=== PATIENT | male | born 1940 | race Caucasian/White ===

== ENCOUNTER → 2016-05-10 | Outpatient (CLI) | payer OTHER, BC ==
[~2016-05-10] MED LIST: ACTOS15 MG PO; ADULT LOW DOSE81 MG PO; ALLOPURINOL 30300 M1 PO; ALLOPURINOL 30300 M2 PO; ALLOPURINOL 30300 M3 PO; AMARYL4 MG PO; ASPIRIN325 PO; AVELOX 400 MG400 MG OR; CADUET 5 MG-401 EACH PO; CARVEDILOL 37.5 MG PO; CEFDINIR PO; COLACE100 MG PO; CORGARD40 M1 PO; CORGARD40 MG PO; DIOVAN HCT 1601 EACH PO; DIOVAN HCT 3201 EAC1 PO; DOXEPIN 10 MG C10 MG PO; DOXYCYCLINE 10100 MG PO; GLUCOPHAGE850 MG PO; HYDROXYZINE HCL10 M1 PO; IMDUR 30 MG TAB30 M1 PO; LASIX 40 MG TAB40 M2 PO; LIPITOR40 MG PO; METFORMIN; MVI PO; MYRBETRIQ50 MG PO; OMEGA-31000 MG PO; PENICILLIN V P500 MG PO; PLAVIX 75 MG TA75 MG PO; PRADAXA150 MG PO; PREDNISONE 5 MG5 M1 OR; PRILOSEC 20 MG20 MG PO; PRIMIDONE50 MG PO; SERTRALINE HCL50 MG PO; SUPER OMEGA-31000 MG PO; VITAMIN B-12500 MCG PO; VITAMIN D2000 UNIT PO; XANAX 0.25 MG0.25 MG PO; [UNRECOGNIZED DRUG - OTHER]; [UNRECOGNIZED DRUG - OTHER] PO
== END ==
LOC: RAD 15:25
DX: L97.529 Non-pressure chronic ulcer of other part of left foot with unspecified severity (principal)

== ENCOUNTER → 2016-05-24 | Outpatient (CLI) | payer OTHER, BC | LOC: HYPER 07:48 | DX: I70.245 Atherosclerosis of native arteries of left leg with ulceration of other part of foot (principal); L97.521 Non-pressure chronic ulcer of other part of left foot limited to breakdown of skin; E11.621 Type 2 diabetes mellitus with foot ulcer; E11.51 Type 2 diabetes mellitus with diabetic peripheral angiopathy without gangrene; Z79.84 Long term (current) use of oral hypoglycemic drugs; Z87.891 Personal history of nicotine dependence; Z72.89 Other problems related to lifestyle ==

== ENCOUNTER → 2016-07-15 | Outpatient (CLI) | payer OTHER, BC | LOC: HYPER 07-14 15:47 | DX: E11.621 Type 2 diabetes mellitus with foot ulcer (principal); L97.511 Non-pressure chronic ulcer of other part of right foot limited to breakdown of skin; L97.521 Non-pressure chronic ulcer of other part of left foot limited to breakdown of skin; L97.411 Non-pressure chronic ulcer of right heel and midfoot limited to breakdown of skin; E11.622 Type 2 diabetes mellitus with other skin ulcer; L97.821 Non-pressure chronic ulcer of other part of left lower leg limited to breakdown of skin; L97.811 Non-pressure chronic ulcer of other part of right lower leg limited to breakdown of skin; E11.51 Type 2 diabetes mellitus with diabetic peripheral angiopathy without gangrene; Z79.84 Long term (current) use of oral hypoglycemic drugs; Z87.891 Personal history of nicotine dependence ==

== ENCOUNTER → 2016-08-06 | Outpatient (CLI) | payer OTHER, BC | LOC: HYPER 07:09 | DX: E11.621 Type 2 diabetes mellitus with foot ulcer (principal); L97.512 Non-pressure chronic ulcer of other part of right foot with fat layer exposed; I70.245 Atherosclerosis of native arteries of left leg with ulceration of other part of foot; L97.522 Non-pressure chronic ulcer of other part of left foot with fat layer exposed; E11.51 Type 2 diabetes mellitus with diabetic peripheral angiopathy without gangrene; Z79.84 Long term (current) use of oral hypoglycemic drugs; Z87.891 Personal history of nicotine dependence; Z72.89 Other problems related to lifestyle ==

== ENCOUNTER → 2016-08-27 | Outpatient (CLI) | payer OTHER, BC | LOC: HYPER 07:12 | DX: E11.621 Type 2 diabetes mellitus with foot ulcer (principal); L97.521 Non-pressure chronic ulcer of other part of left foot limited to breakdown of skin; L97.511 Non-pressure chronic ulcer of other part of right foot limited to breakdown of skin; E11.51 Type 2 diabetes mellitus with diabetic peripheral angiopathy without gangrene; F15.90 Other stimulant use, unspecified, uncomplicated; Z79.84 Long term (current) use of oral hypoglycemic drugs; Z95.1 Presence of aortocoronary bypass graft; Z87.891 Personal history of nicotine dependence; Z72.89 Other problems related to lifestyle; Z72.0 Tobacco use ==

== ENCOUNTER → 2016-09-10 | Outpatient (CLI) | payer OTHER, BC | LOC: HYPER 06:56 | DX: E11.621 Type 2 diabetes mellitus with foot ulcer (principal); L97.511 Non-pressure chronic ulcer of other part of right foot limited to breakdown of skin; L97.521 Non-pressure chronic ulcer of other part of left foot limited to breakdown of skin; E11.51 Type 2 diabetes mellitus with diabetic peripheral angiopathy without gangrene; Z79.84 Long term (current) use of oral hypoglycemic drugs; Z87.891 Personal history of nicotine dependence; Z72.89 Other problems related to lifestyle; Z72.0 Tobacco use; Z95.1 Presence of aortocoronary bypass graft ==

== ENCOUNTER → 2016-09-30 | Outpatient (CLI) | payer OTHER, BC | LOC: HYPER 07:03 | DX: E11.621 Type 2 diabetes mellitus with foot ulcer (principal); L97.512 Non-pressure chronic ulcer of other part of right foot with fat layer exposed; L97.522 Non-pressure chronic ulcer of other part of left foot with fat layer exposed; I70.245 Atherosclerosis of native arteries of left leg with ulceration of other part of foot; E11.51 Type 2 diabetes mellitus with diabetic peripheral angiopathy without gangrene; Z79.84 Long term (current) use of oral hypoglycemic drugs; Z87.891 Personal history of nicotine dependence; Z72.89 Other problems related to lifestyle ==

== ENCOUNTER → 2016-10-16 | Outpatient (CLI) | payer OTHER, BC | LOC: HYPER 07:02 | DX: I70.245 Atherosclerosis of native arteries of left leg with ulceration of other part of foot (principal); E11.622 Type 2 diabetes mellitus with other skin ulcer; E11.51 Type 2 diabetes mellitus with diabetic peripheral angiopathy without gangrene; L97.512 Non-pressure chronic ulcer of other part of right foot with fat layer exposed; L97.522 Non-pressure chronic ulcer of other part of left foot with fat layer exposed; Z79.84 Long term (current) use of oral hypoglycemic drugs; Z95.1 Presence of aortocoronary bypass graft; Z87.891 Personal history of nicotine dependence; Z72.89 Other problems related to lifestyle ==

== ENCOUNTER → 2016-11-01 | Outpatient (CLI) | payer OTHER, BC | LOC: HYPER 07:53 | DX: E11.621 Type 2 diabetes mellitus with foot ulcer (principal); L97.512 Non-pressure chronic ulcer of other part of right foot with fat layer exposed; I70.245 Atherosclerosis of native arteries of left leg with ulceration of other part of foot; L97.522 Non-pressure chronic ulcer of other part of left foot with fat layer exposed; E11.51 Type 2 diabetes mellitus with diabetic peripheral angiopathy without gangrene; F41.9 Anxiety disorder, unspecified; Z79.84 Long term (current) use of oral hypoglycemic drugs; Z87.891 Personal history of nicotine dependence; Z72.89 Other problems related to lifestyle; Z95.1 Presence of aortocoronary bypass graft ==

== ENCOUNTER → 2016-11-18 | Outpatient (CLI) | payer OTHER, BC | LOC: HYPER 07:06 | DX: E11.621 Type 2 diabetes mellitus with foot ulcer (principal); L97.522 Non-pressure chronic ulcer of other part of left foot with fat layer exposed; L97.512 Non-pressure chronic ulcer of other part of right foot with fat layer exposed; I70.245 Atherosclerosis of native arteries of left leg with ulceration of other part of foot; E11.51 Type 2 diabetes mellitus with diabetic peripheral angiopathy without gangrene; Z79.84 Long term (current) use of oral hypoglycemic drugs; Z87.891 Personal history of nicotine dependence; Z72.89 Other problems related to lifestyle; Z95.1 Presence of aortocoronary bypass graft; F41.9 Anxiety disorder, unspecified ==

== ENCOUNTER → 2016-12-04 | Outpatient (CLI) | payer OTHER, BC | LOC: HYPER 07:02 | DX: E11.621 Type 2 diabetes mellitus with foot ulcer (principal); L97.522 Non-pressure chronic ulcer of other part of left foot with fat layer exposed; L97.512 Non-pressure chronic ulcer of other part of right foot with fat layer exposed; Z79.84 Long term (current) use of oral hypoglycemic drugs; E11.51 Type 2 diabetes mellitus with diabetic peripheral angiopathy without gangrene; F41.9 Anxiety disorder, unspecified; Z95.1 Presence of aortocoronary bypass graft; Z87.891 Personal history of nicotine dependence; Z72.89 Other problems related to lifestyle ==

== ENCOUNTER → 2016-12-27 | Outpatient (CLI) | payer OTHER, BC | LOC: HYPER 07:59 | DX: E11.621 Type 2 diabetes mellitus with foot ulcer (principal); L97.522 Non-pressure chronic ulcer of other part of left foot with fat layer exposed; L97.512 Non-pressure chronic ulcer of other part of right foot with fat layer exposed; Z79.84 Long term (current) use of oral hypoglycemic drugs; E11.51 Type 2 diabetes mellitus with diabetic peripheral angiopathy without gangrene; Z95.1 Presence of aortocoronary bypass graft; Z87.891 Personal history of nicotine dependence; Z72.89 Other problems related to lifestyle ==

== ENCOUNTER → 2017-01-14 | Outpatient (CLI) | payer OTHER, BC | LOC: HYPER 07:02 | DX: I70.245 Atherosclerosis of native arteries of left leg with ulceration of other part of foot (principal); L97.522 Non-pressure chronic ulcer of other part of left foot with fat layer exposed; I70.235 Atherosclerosis of native arteries of right leg with ulceration of other part of foot; L97.512 Non-pressure chronic ulcer of other part of right foot with fat layer exposed; E11.621 Type 2 diabetes mellitus with foot ulcer; Z79.84 Long term (current) use of oral hypoglycemic drugs; Z95.1 Presence of aortocoronary bypass graft; Z87.891 Personal history of nicotine dependence; Z72.89 Other problems related to lifestyle ==

== ENCOUNTER → 2017-01-31 | Outpatient (CLI) | payer OTHER, BC | LOC: HYPER 08:03 | DX: E11.621 Type 2 diabetes mellitus with foot ulcer (principal); L97.512 Non-pressure chronic ulcer of other part of right foot with fat layer exposed; L97.522 Non-pressure chronic ulcer of other part of left foot with fat layer exposed; E11.51 Type 2 diabetes mellitus with diabetic peripheral angiopathy without gangrene; Z79.84 Long term (current) use of oral hypoglycemic drugs; Z95.1 Presence of aortocoronary bypass graft; Z87.891 Personal history of nicotine dependence ==

== ENCOUNTER → 2017-02-14 | Outpatient (CLI) | payer OTHER, BC | LOC: HYPER 07:48 | DX: E11.621 Type 2 diabetes mellitus with foot ulcer (principal); L97.512 Non-pressure chronic ulcer of other part of right foot with fat layer exposed; L97.522 Non-pressure chronic ulcer of other part of left foot with fat layer exposed; E11.51 Type 2 diabetes mellitus with diabetic peripheral angiopathy without gangrene; Z79.84 Long term (current) use of oral hypoglycemic drugs; Z95.1 Presence of aortocoronary bypass graft; Z87.891 Personal history of nicotine dependence; Z72.89 Other problems related to lifestyle ==

== ENCOUNTER → 2017-03-25 | Outpatient (CLI) | payer OTHER, BC | LOC: HYPER 07:05 | DX: E11.621 Type 2 diabetes mellitus with foot ulcer (principal); L97.522 Non-pressure chronic ulcer of other part of left foot with fat layer exposed; L97.512 Non-pressure chronic ulcer of other part of right foot with fat layer exposed; I70.245 Atherosclerosis of native arteries of left leg with ulceration of other part of foot; E11.51 Type 2 diabetes mellitus with diabetic peripheral angiopathy without gangrene; Z79.84 Long term (current) use of oral hypoglycemic drugs; Z95.1 Presence of aortocoronary bypass graft; Z87.891 Personal history of nicotine dependence; Z72.89 Other problems related to lifestyle ==

== ENCOUNTER → 2017-04-15 | Outpatient (CLI) | payer OTHER, BC ==
[~2017-04-15] MED LIST changes: +CENTRUM SILVER1 EAC2 PO; +COREG6.25 MG PO; +FISH OIL 1,001000 M2 PO; +INVOKANA100 MG PO; +JANUVIA 50 MG T50 MG PO; +NORCO 5-325 TA1 EACH PO; +PRADAXA75 MG PO; +PROAIR HFA8.5 GM INH; +VITAMINC500 PO
== END ==
LOC: HYPER 06:48
DX: E11.621 Type 2 diabetes mellitus with foot ulcer (principal); L97.521 Non-pressure chronic ulcer of other part of left foot limited to breakdown of skin; L97.512 Non-pressure chronic ulcer of other part of right foot with fat layer exposed; S80.811D Abrasion, right lower leg, subsequent encounter; E11.51 Type 2 diabetes mellitus with diabetic peripheral angiopathy without gangrene; I73.9 Peripheral vascular disease, unspecified; Z87.891 Personal history of nicotine dependence; Z72.89 Other problems related to lifestyle; Z95.1 Presence of aortocoronary bypass graft; Z79.84 Long term (current) use of oral hypoglycemic drugs

== ENCOUNTER → 2017-05-06 | Outpatient (CLI) | payer OTHER, BC | LOC: HYPER 06:41 | DX: S90.424D Blister (nonthermal), right lesser toe(s), subsequent encounter (principal); E11.621 Type 2 diabetes mellitus with foot ulcer; I70.245 Atherosclerosis of native arteries of left leg with ulceration of other part of foot; L97.522 Non-pressure chronic ulcer of other part of left foot with fat layer exposed; L97.512 Non-pressure chronic ulcer of other part of right foot with fat layer exposed; E11.622 Type 2 diabetes mellitus with other skin ulcer; L97.811 Non-pressure chronic ulcer of other part of right lower leg limited to breakdown of skin; L89.612 Pressure ulcer of right heel, stage 2; E11.51 Type 2 diabetes mellitus with diabetic peripheral angiopathy without gangrene; Z95.1 Presence of aortocoronary bypass graft; Z87.891 Personal history of nicotine dependence; Z72.89 Other problems related to lifestyle; X58.XXXD Exposure to other specified factors, subsequent encounter ==

== ENCOUNTER → 2017-05-20 | Outpatient (CLI) | payer OTHER, BC | LOC: HYPER 06:43 | DX: E11.621 Type 2 diabetes mellitus with foot ulcer (principal); L97.411 Non-pressure chronic ulcer of right heel and midfoot limited to breakdown of skin; I70.245 Atherosclerosis of native arteries of left leg with ulceration of other part of foot; L97.521 Non-pressure chronic ulcer of other part of left foot limited to breakdown of skin; E11.51 Type 2 diabetes mellitus with diabetic peripheral angiopathy without gangrene; Z79.84 Long term (current) use of oral hypoglycemic drugs; Z95.1 Presence of aortocoronary bypass graft; Z87.891 Personal history of nicotine dependence; Z72.89 Other problems related to lifestyle ==

== ENCOUNTER 2017-06-04 05:17 | Inpatient (IN) | payer OTHER, BC ==
[2017-06-02 09:24] LABS: URINE BILIRUBIN NEGATIVE (Negative); URINE BLOOD NEGATIVE (Negative); URINE CLARITY CLEAR; URINE COLOR YELLOW; URINE GLUCOSE-RANDOM* 2+ (Negative); URINE KETONES NEGATIVE (Negative); URINE LEUKOCYTES NEGATIVE (Negative); URINE NITRITE NEGATIVE (Negative); URINE PROTEIN (DIPSTICK) NEGATIVE (Negative); URINE SPECIFIC GRAVITY 1.015 (1.005-1.035); URINE UROBILINOGEN 0.2 E.U./dl (0.2-1.0)
[2017-06-02 09:29] LABS: HEMATOCRIT 24.5 % (42.0-52.0); MCHC 32.8 g/dL (28.0-37.0); MCV 106.7 fL (80.0-100.0); RBC 2.3 mil/uL (4.50-6.00); WBC 10.7 thou/uL (4.0-11.0)
[2017-06-02 09:42] LABS: APTT 30.1 Seconds (24.5-32.8); INR 1.1
[2017-06-02 09:50] LABS: ALBUMIN 2.8 g/dL (3.4-5.0); CALCIUM 9.3 mg/dL (8.5-10.1); POTASSIUM 3.6 mmol/L (3.5-5.1); TOTAL BILIRUBIN 0.2 mg/dL (<0.1-1.0)
[~2017-06-04] VITALS: Ht 175.3 cm; Wt 97.1 kg
--- NOTE | ~2017-06-04 | HC ---
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 HISTORY OF PRESENT ILLNESS: The patient is a very pleasant 77-year-old gentleman well known to Dr. Aris Hanson at [facility]. This gentleman has history of diabetes mellitus type 2 and peripheral arterial disease of the lower extremities. He has seen Dr. Hanson in the clinic since April 2016. 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 More recently, he developed an ulceration of the right lateral heel, which was worsening and now progressing. The patient yesterday was taken to the operating room by Rodolfo Boone MD and underwent right common femoral artery endarterectomy with bovine pericardial patch angioplasty. At the end of surgery, the patient had an excellent Doppler signal in the superficial femoral artery and pulses in both feet. Wound care is consulted for inpatient care of the patient's wound. PAST MEDICAL HISTORY: 1. Diabetes mellitus type 2. 2. Peripheral arterial disease with arterial insufficiency of the lower extremities. SOCIAL HISTORY: The patient is a nonsmoker. He lives with his who is present in the room at the time of today's visit. MEDICATIONS: Chronic medications have included, see chart. PAST SURGICAL HISTORY: The patient has a history of previous arterial stent to the lower extremities. PHYSICAL EXAMINATION: GENERAL: Shows a well-appearing elderly gentleman, alert, conversant, appears slightly pale. HEENT: Mucous membranes are moist. NECK: Supple. LUNGS: Respirations are unlabored. ABDOMEN: Soft. [address] [address] CONSULTATION Name: GIANNA DELGADO Room #: 208-P [facility] IN .R.#: [id number] Admission: 06/04/17 Attend Phys: Rodolfo Boone MD Discharge: 06/06/17 Date of : 36 Report #: [id number] EXTREMITIES: Examination of the lower extremities shows easily palpable dorsalis pedis pulse in the right and left dorsalis pedis. Examination of the right foot shows a small ulceration of the medial right great toe with adherent exudate measuring 1 x 0.2 x 0.1 cm deep. On the right lateral heel, there is a 2 x 2 cm ulcer with adherent grayish black surface eschar superficially necrotic. Examination of the left foot shows small arterial ulcer of the left lateral great toe measuring 0.7 x 0.2 x 0.1 cm with adherent white exudate. IMPRESSION: 1. Peripheral arterial insufficiency of the lower extremities arterial ulcers of the left and right great toe and the right heel. 2. Diabetes mellitus type 2 with foot ulcerations. 3. Postoperative anemia. PLAN: Reperfusion to the right leg has been established by surgical angioplasty. Dorsalis pedis pulse is excellent. We will observe for healing. Topical care of the wound with Medihoney and Mepilex AG border. Medihoney to the small ulcers of the right and left great toe arterial ulcers with foam. Wound care team will observe for healing and observe slight redness of the left great toe. <ELECTRONICALLY SIGNED> By: Branden Resendez MD 06/07/17 1117 [id number] Branden Resendez MD /nt
--- NOTE | ~2017-06-04 | S ---
[facility] [place] [place] [place] [address] SURGICAL PATH RPT PROCEDURE Name: JAMES DELGADO Room #: 208-P ADM IN M.R.#: [id number] Admission: 06/04/17 Date of : 36 Discharge: Report #: [id number] Path Case #: [id number] PATHOLOGY REPORT COLLECTION DATE: 06/04/2017 RECEIVED DATE: 06/04/2017 SUBMITTING PHYS: Dr. Rodolfo Boone OTHER PHYS: Dr Sue Chappell SPECIMEN(S) RECEIVED: A.Femoral plaque * * * * * * * * * * * * FINAL DIAGNOSIS: Femoral plaque: - Marked calcific sclerosis present, history of peripheral vascular disease and atherosclerosis. (IUV:adalid; 06/06/2017) PATHOLOGIST: Xin Coburn M.D. REPORT ELECTRONICALLY SIGNED BY: Xin Coburn M.D. DATE/TIME: 06/06/2017 13:05 * * * * * * * * * * * * GROSS PATHOLOGY: The specimen is received in formalin, labeled "James Delgado femoral plaque". Received are multiple fragments of pale yellow-brizuela to dark brown, rubbery to partially calcified tissue measuring 3.5 x 3.2 x 1.3 cm in aggregate dimensions. The specimen is submitted representatively in cassette A1, following light decalcification. (DAC; 06/05/2017) CLINICAL HISTORY: Atherosclerotic, PVD with ulceration INITIAL CPT CODE(S): A; 06298, 69466 Professional services performed by [facility] at [facility] [address], [place] [address] Technical services performed by [facility] at [address] [place] [id number]. [facility] [address] [place] [address] SURGICAL PATH RPT PROCEDURE Name: JAMES DELGADO Room #: 208-P ADM IN M.R.#: [id number] Admission: 06/04/17 Date of : 36 Discharge: Report #: [id number] Path Case #: [id number] [facility] [address] PHONE: [phone] DIRECTOR: Mikel Wilson M.D. * * * END OF REPORT * * *
--- NOTE | ~2017-06-04 | O ---
[facility] [place] [address] OPERATIVE REPORT Name: SANDYGIANNA Melvin Room #: 208-P [facility]..#: [id number] Admission: 06/04/17 Attend Phys: Rodolfo Boone MD Discharge: 06/06/17 Date of : 36 Report #: [id number] THIS REPORT FOR: //name// CC: Sue Boone DATE OF SERVICE: 06/04/2017 PREOPERATIVE DIAGNOSIS: Right common femoral artery stenosis. FINAL DIAGNOSES: Right common femoral artery stenosis. OPERATIVE PROCEDURE PERFORMED: Right common femoral endarterectomy with bovine pericardial patch angioplasty. SURGEON: Rodolfo Boone MD. SLITTER CUT OFF OPERATOR: Lucie Rodriguez. ANESTHESIA: General. OPERATIVE INDICATIONS: The patient is an elderly male who has a known history of peripheral vascular occlusive disease and has undergone multiple percutaneous interventions in the past. The patient is a diabetic, has some nonhealing ulcers in his right foot and on recent angiography was noted to have a severe long stenosis in the right common femoral artery. He was brought to the operating room now for common femoral endarterectomy. OPERATIVE SUMMARY: The patient was brought to the operative room and placed on the OR table in supine position. After anesthesia was induced via general endotracheal route and monitoring lines have been positioned, the patient was prepped and draped in a sterile fashion with chlorhexidine. An oblique incision was made in the right groin. Dissection was carried down where we identified the common femoral artery. We then dissected both cephalad and craniad dissecting the artery free from surrounding tissues identifying the common profunda and superficial femoral arteries. They were encircled with vascular tapes. Heparin was given, 15,000 units. Superficial femoral and profunda femoral arteries were clamped and then, the common femoral artery was clamped. A common femoral artery arteriotomy was made and extended both proximally and distally onto the superficial femoral artery. Extensive plaque was noted and was dissected from the vessel wall. There was good tapering distally in the profunda femoral and superficial femoral arteries. Proximally, we debrided significant calcium plaque out of the vessel. We then debrided all loose fronds from the vessel wall under loupe magnification and saline irrigation. A bovine pericardial patch was sewn in place with closure utilizing 5-0 Prolene. Prior to completing the patch, site was deaired by releasing the clamp on the [address] [address] OPERATIVE REPORT Name: GIANNA DELGADO Room #: 208-P [facility] IN ..#: [id number] Admission: 06/04/17 Attend Phys: Rodolfo Boone MD Discharge: 06/06/17 Date of : 36 Report #: [id number] femoral artery. We then completed the closure and the common femoral artery clamp was then released and finally, the superficial femoral artery was released. Protamine was given to reverse the heparin. Hemostasis at the suture line was ensured. Once adequate, the wound was closed in multiple layers with absorbable suture. The procedure was completed. The patient was taken to postanesthesia care unit in stable condition. An excellent Doppler signal was noted in the profunda femoral artery. At the completion of this operation, it should be noted the superficial femoral artery was chronically occluded distally. <ELECTRONICALLY SIGNED> By: Rodolfo Boone MD 07/15/17 1021 [id number] Rodolfo Boone MD /nt
[~2017-06-04 05:17] MED LIST changes: -NORCO 5-325 TA1 EACH PO
[2017-06-04 11:30] VITALS: BP 105/65
[2017-06-04 18:00] VITALS: BP 124/77
[2017-06-04 20:00] VITALS: BP 105/48
[2017-06-04 22:00] VITALS: BP 98/53
[2017-06-04 22:51] VITALS: BP 102/52
[2017-06-04 23:42] VITALS: BP 102/47
[2017-06-05] VITALS (7 sets, daily range): BP systolic 94–141; BP diastolic 43–65
[2017-06-05 03:59] LABS: CALCIUM 7.8 mg/dL (8.5-10.1); CREATININE 1.7 mg/dL (0.7-1.3); POTASSIUM 3.4 mmol/L (3.5-5.1)
[2017-06-05 04:09] LABS: RDW 15.7 % (10.5-14.5)
[2017-06-05 04:11] LABS: MCH 34.6 pg (26.0-34.0); MCHC 32.5 g/dL (28.0-37.0); MCV 106.6 fL (80.0-100.0); RBC 1.85 mil/uL (4.50-6.00); WBC 9.4 thou/uL (4.0-11.0)
[2017-06-05 04:17] LABS: HEMATOCRIT 19.7 % (42.0-52.0); HEMOGLOBIN 6.4 gm/dL (14.0-18.0)
[2017-06-06 00:01] VITALS: BP 131/60
[2017-06-06 06:49] VITALS: BP 140/81
[2017-06-06 07:43] LABS: HEMATOCRIT 24.9 % (42.0-52.0); HEMOGLOBIN 8.1 gm/dL (14.0-18.0); MCH 33.1 pg (26.0-34.0); MCHC 32.6 g/dL (28.0-37.0); RBC 2.45 mil/uL (4.50-6.00); RDW 20.1 % (10.5-14.5); WBC 9.2 thou/uL (4.0-11.0)
[2017-06-06 07:49] LABS: MCV 101.4 fL (80.0-100.0)
[2017-06-06 07:53] LABS: CALCIUM 8.5 mg/dL (8.5-10.1); CREATININE 1.5 mg/dL (0.7-1.3); POTASSIUM 3.7 mmol/L (3.5-5.1)
[2017-06-06] MEDS ORDERED: NORCO 5-325 TA1 EACH PO (11:12)
[2017-06-06 11:15] VITALS: BP 91/48
[2017-06-06 11:57] VITALS: BP 91/48
[2017-06-06 13:37] VITALS: BP 91/48
[2017-06-06 15:12] VITALS: BP 91/48
== END 2017-06-06 13:15 | disposition home or self-care (01) | DRG 270 ==
LOC: TBA 05:17 → ICU 05:17 → PRE 05:37 → ICU 16:07 → 2N 06-06 06:38 → ENTRNSPT 06-06 13:55 → EDTRNSPTSTS 06-06 13:57
PROVIDERS: Nurse Practitioner; Thoracic Surgery (Cardiothoracic Vascular Surgery)
PROC: 04UK3JZ Supplement Right Femoral Artery with Synthetic Substitute, Percutaneous Approach (ICD-10-PCS; principal; 2017-06-04)
PROC: 04CK3ZZ Extirpation of Matter from Right Femoral Artery, Percutaneous Approach (ICD-10-PCS; principal; 2017-06-04)
PROC: 30233N1 Transfusion of Nonautologous Red Blood Cells into Peripheral Vein, Percutaneous Approach (ICD-10-PCS; 2017-06-05)
DX: I70.201 Unspecified atherosclerosis of native arteries of extremities, right leg (principal); E43 Unspecified severe protein-calorie malnutrition; D62 Acute posthemorrhagic anemia; L97.429 Non-pressure chronic ulcer of left heel and midfoot with unspecified severity; L97.419 Non-pressure chronic ulcer of right heel and midfoot with unspecified severity; E11.621 Type 2 diabetes mellitus with foot ulcer; L97.529 Non-pressure chronic ulcer of other part of left foot with unspecified severity; N18.9 Chronic kidney disease, unspecified; I12.9 Hypertensive chronic kidney disease with stage 1 through stage 4 chronic kidney disease, or unspecified chronic kidney disease; I25.10 Atherosclerotic heart disease of native coronary artery without angina pectoris; E78.5 Hyperlipidemia, unspecified; E11.22 Type 2 diabetes mellitus with diabetic chronic kidney disease; E11.42 Type 2 diabetes mellitus with diabetic polyneuropathy; Z95.1 Presence of aortocoronary bypass graft; Z88.8 Allergy status to other drugs, medicaments and biological substances; Z90.49 Acquired absence of other specified parts of digestive tract
CPT/HCPCS: 10078; 27001; 50010; 50101; 50417; 50455; 51301; 52279; 56524; 56526; 56527; 62110; 62900; 70005

== ENCOUNTER → 2017-06-19 | Outpatient (CLI) | payer OTHER, BC ==
[~2017-06-19] MED LIST changes: +NORCO 5-325 TA1 EACH PO
== END ==
LOC: HYPER 06-04 08:59
DX: E11.621 Type 2 diabetes mellitus with foot ulcer (principal); L97.512 Non-pressure chronic ulcer of other part of right foot with fat layer exposed; L97.522 Non-pressure chronic ulcer of other part of left foot with fat layer exposed; L97.411 Non-pressure chronic ulcer of right heel and midfoot limited to breakdown of skin; E11.51 Type 2 diabetes mellitus with diabetic peripheral angiopathy without gangrene; L89.613 Pressure ulcer of right heel, stage 3; Z79.84 Long term (current) use of oral hypoglycemic drugs; Z95.1 Presence of aortocoronary bypass graft; Z87.891 Personal history of nicotine dependence; Z72.89 Other problems related to lifestyle

== ENCOUNTER → 2017-07-03 | Outpatient (CLI) | payer OTHER, BC | LOC: HYPER 06:51 | DX: T81.31XD Disruption of external operation (surgical) wound, not elsewhere classified, subsequent encounter (principal); E11.621 Type 2 diabetes mellitus with foot ulcer; L97.512 Non-pressure chronic ulcer of other part of right foot with fat layer exposed; L97.522 Non-pressure chronic ulcer of other part of left foot with fat layer exposed; E11.51 Type 2 diabetes mellitus with diabetic peripheral angiopathy without gangrene; Z79.84 Long term (current) use of oral hypoglycemic drugs; Z95.1 Presence of aortocoronary bypass graft; Z87.891 Personal history of nicotine dependence; Z72.89 Other problems related to lifestyle; Y83.8 Other surgical procedures as the cause of abnormal reaction of the patient, or of later complication, without mention of misadventure at the time of the procedure ==

== ENCOUNTER → 2017-07-17 | Outpatient (CLI) | payer OTHER, BC | LOC: HYPER 07:03 | DX: T81.31XD Disruption of external operation (surgical) wound, not elsewhere classified, subsequent encounter (principal); E11.621 Type 2 diabetes mellitus with foot ulcer; L97.512 Non-pressure chronic ulcer of other part of right foot with fat layer exposed; L97.522 Non-pressure chronic ulcer of other part of left foot with fat layer exposed; E11.51 Type 2 diabetes mellitus with diabetic peripheral angiopathy without gangrene; L89.613 Pressure ulcer of right heel, stage 3; Z79.84 Long term (current) use of oral hypoglycemic drugs; Z95.1 Presence of aortocoronary bypass graft; Z87.891 Personal history of nicotine dependence; Z72.89 Other problems related to lifestyle; Y83.8 Other surgical procedures as the cause of abnormal reaction of the patient, or of later complication, without mention of misadventure at the time of the procedure ==

== ENCOUNTER → 2017-07-31 | Outpatient (CLI) | payer OTHER, BC | LOC: HYPER 07:05 | DX: T81.31XD Disruption of external operation (surgical) wound, not elsewhere classified, subsequent encounter (principal); E11.621 Type 2 diabetes mellitus with foot ulcer; L97.512 Non-pressure chronic ulcer of other part of right foot with fat layer exposed; L97.522 Non-pressure chronic ulcer of other part of left foot with fat layer exposed; E11.622 Type 2 diabetes mellitus with other skin ulcer; L89.613 Pressure ulcer of right heel, stage 3; L97.811 Non-pressure chronic ulcer of other part of right lower leg limited to breakdown of skin; E11.51 Type 2 diabetes mellitus with diabetic peripheral angiopathy without gangrene; Z79.84 Long term (current) use of oral hypoglycemic drugs; Z95.1 Presence of aortocoronary bypass graft; Z87.891 Personal history of nicotine dependence; Y83.8 Other surgical procedures as the cause of abnormal reaction of the patient, or of later complication, without mention of misadventure at the time of the procedure ==

== ENCOUNTER → 2017-08-11 | Outpatient (CLI) | payer OTHER, BC | LOC: HYPER 08:45 | DX: T81.31XD Disruption of external operation (surgical) wound, not elsewhere classified, subsequent encounter (principal); E11.621 Type 2 diabetes mellitus with foot ulcer; L97.512 Non-pressure chronic ulcer of other part of right foot with fat layer exposed; L97.522 Non-pressure chronic ulcer of other part of left foot with fat layer exposed; L97.411 Non-pressure chronic ulcer of right heel and midfoot limited to breakdown of skin; L89.613 Pressure ulcer of right heel, stage 3; E11.51 Type 2 diabetes mellitus with diabetic peripheral angiopathy without gangrene; Z79.84 Long term (current) use of oral hypoglycemic drugs; Z95.1 Presence of aortocoronary bypass graft; Z87.891 Personal history of nicotine dependence; Y83.8 Other surgical procedures as the cause of abnormal reaction of the patient, or of later complication, without mention of misadventure at the time of the procedure ==

== ENCOUNTER → 2017-08-25 | Outpatient (CLI) | payer OTHER, BC | LOC: HYPER 06:48 | DX: T81.31XD Disruption of external operation (surgical) wound, not elsewhere classified, subsequent encounter (principal); E11.621 Type 2 diabetes mellitus with foot ulcer; L89.613 Pressure ulcer of right heel, stage 3; L97.411 Non-pressure chronic ulcer of right heel and midfoot limited to breakdown of skin; I70.245 Atherosclerosis of native arteries of left leg with ulceration of other part of foot; L97.522 Non-pressure chronic ulcer of other part of left foot with fat layer exposed; L97.512 Non-pressure chronic ulcer of other part of right foot with fat layer exposed; E11.51 Type 2 diabetes mellitus with diabetic peripheral angiopathy without gangrene; L84 Corns and callosities; Z79.84 Long term (current) use of oral hypoglycemic drugs; Z95.1 Presence of aortocoronary bypass graft; Z87.891 Personal history of nicotine dependence; Y83.8 Other surgical procedures as the cause of abnormal reaction of the patient, or of later complication, without mention of misadventure at the time of the procedure ==